=== PATIENT | female | born 1995 | race Caucasian/White ===

== ENCOUNTER 2018-02-19 15:33 | Emergency (ER) | payer OTHER ==
[~2018-02-19] VITALS: Ht 157.5 cm; Wt 53.3 kg
[2018-02-19 16:00] VITALS: BP 124/77
[2018-02-19] MEDS ORDERED: DIPHENHYDRAMINE 50 MG/ML, 1ML IVPush ONE (17:30)
[2018-02-19] MEDS ORDERED: SODIUM CHLORIDE FLUSH 10ML SYR IVF ONE (17:30)
[2018-02-19] MEDS ORDERED: KETOROLAC 30 MG/1 ML IVPush ONE (17:30)
[2018-02-19] MEDS ORDERED: METOCLOPRAMIDE 5 MG/ML, 2ML IVPush ONE (17:30)
[2018-02-19] MEDS ORDERED: KETOROLAC 30 MG/1 ML ONE (17:39)
[2018-02-19] MEDS ORDERED: DIPHENHYDRAMINE 50 MG/ML, 1ML ONE (17:39)
[2018-02-19] MEDS ORDERED: METOCLOPRAMIDE 5 MG/ML, 2ML ONE (17:39)
== END 2018-02-19 18:41 | disposition home or self-care (01) ==
LOC: ED 17:00
DX: G43.C0 Periodic headache syndromes in child or adult, not intractable (principal)
CPT/HCPCS: 70450; 96374; 96375; 99284; J1200; J1885; J2765